=== PATIENT | male | born 2000 | race Hispanic/Latino ===

== ENCOUNTER 2019-02-27 17:27 | Emergency (ER) | payer OTHER ==
[2019-02-27] MEDS ORDERED: DiphenhydrAMINE HCL 50 MG/ML VIAL ONE (17:45)
[2019-02-27] MEDS ORDERED: DEXAMETHASONE SOD PHOSPHATE 10MG/ML 1ML VIAL ONE (17:51)
== END 2019-02-27 18:49 | disposition home or self-care (01) ==
LOC: EDH 17:27
DX: L23.9 Allergic contact dermatitis, unspecified cause (principal)
CPT/HCPCS: 96372 ×2; 99284; J1100; J1200

== ENCOUNTER 2021-01-06 14:51 | Emergency (ER) | payer OTHER, SELFPAY ==
[~2021-01-06] VITALS: Ht 170.2 cm; Wt 65.8 kg
[2021-01-06 14:53] VITALS: BP 119/67
== END 2021-01-06 15:57 | disposition home or self-care (01) ==
LOC: EDH 14:51
DX: Z20.822 Contact with and (suspected) exposure to COVID-19 (principal)
CPT/HCPCS: 99281

== ENCOUNTER 2023-10-16 19:43 | Emergency (ER) | payer OTHER ==
[2023-10-16] MEDS ORDERED: LORAZEPAM 2 MG TABLET PO ONE (20:00)
[2023-10-16] MEDS: LORAZEPAM 1 MG TABLET PO ONE (20:18)
[2023-10-16] MEDS: LORAZEPAM 1 MG TABLET ONE (20:19)
[2023-10-16 20:30] LABS: APPEARANCE,URINE CLEAR (CLEAR); BILIRUBIN,URINE NEGATIVE (NEGATIVE); COLOR,URINE YELLOW (YELLOW); GLUCOSE, URINE (UA) NEGATIVE (NEGATIVE); KETONES,URINE 20 mg/dL (NEGATIVE); LEUKOCYTE ESTERASE ,URINE 250 Leu/uL (NEGATIVE); NITRATE,URINE NEGATIVE (NEGATIVE); OCCULT BLOOD,URINE NEGATIVE (NEGATIVE); PROTEIN,URINE NEGATIVE (NEGATIVE)
[2023-10-16 20:31] LABS: ADD UA MICROSCOPIC YES
[2023-10-16 20:35] LABS: MUCUS,URINE RARE LPF (None Seen); RBC,URINE 0-1 /HPF (0-1)
[2023-10-16 20:37] LABS: AMPHET/METH SCREEN,URINE POSITIVE (NEGATIVE); BARBITURATE SCREEN, URINE NEGATIVE (NEGATIVE); BENZODIAZEPINES SCREEN,URINE NEGATIVE (NEGATIVE); CANNABINOID SCREEN,URINE POSITIVE (NEGATIVE); COCAINE SCREEN,URINE NEGATIVE (NEGATIVE); OPIATE SCREEN,URINE NEGATIVE (NEGATIVE); PHENCYCLIDINE SCREEN,URINE NEGATIVE (NEGATIVE)
[2023-10-16 20:49] LABS: BASOPHILS # (AUTO) 0.04 K/uL (0.00-0.20); BASOPHILS % (AUTO) 0.5 % (0.0-5.0); EOSINOPHILS # (AUTO) 0.28 K/uL (0.00-0.70); EOSINOPHILS % (AUTO) 3.2 % (0.0-8.0); HEMATOCRIT 43.9 % (42-54); IMMATURE GRANULOCYTE ABSOLUTE 0.02 K/uL (0-1); LYMPHOCYTES # (AUTO) 2.7 K/uL (1.0-4.8); LYMPHOCYTES % (AUTO) 31.1 % (21.0-51.0); MEAN CORPUSCULAR HEMOGLOBIN 29.5 pg (27.0-33.0); MEAN CORPUSCULAR HGB CONC 37.1 g/dL (32.0-36.0); MEAN CORPUSCULAR VOLUME 79.4 fL (79-99); MONOCYTES # (AUTO) 0.7 K/uL (0.1-1.0); MONOCYTES % (AUTO) 8.2 % (3.0-13.0); NEUTROPHILS % (AUTO) 56.8 % (40.0-77.0); PLATELET COUNT (AUTO) 261 K/uL (130-400); RED BLOOD CELL COUNT(AUTO) 5.53 MIL/uL (4.50-6.20); RED CELL DISTRIBUTION WIDTH 11.4 % (11.0-15.5); WHITE BLOOD COUNT (AUTO) 8.7 K/uL (4.8-10.8)
[2023-10-16 21:10] LABS: CARBON DIOXIDE 26 mmol/L (21-32); CHLORIDE 101 mmol/L (101-111); CREATININE 1.2 mg/dL (0.5-1.3); GLOMERULAR FILTR. RATE CALC 87 mL/min (>90); GLUCOSE,RANDOM 155 mg/dL (70-105); POTASSIUM 3.4 mmol/L (3.5-5.1); SODIUM SERUM 137 mmol/L (136-145); UREA NITROGEN, BLOOD 11 mg/dL (7-18)
[2023-10-16 21:14] LABS: ALANINE AMINOTRANSFERASE 31 U/L (12-78); ALBUMIN 4.4 g/dL (3.5-5.0); ALCOHOL, BLOOD 4 mg/dL (0-10); ASPARTATE AMINOTRANSFERASE 25 U/L (10-37); BILIRUBIN,TOTAL 1.1 mg/dL (0.2-1.0); CREATINE KINASE, TOTAL 121 U/L (21-232); TOTAL PROTEIN, SERUM 7.3 g/dL (6.0-8.3)
[2023-10-16 21:16] LABS: ACETAMINOPHEN < 1 mcg/mL (10-29); SALICYLATE < 2.8 mg/dL (2.8-20.0)
[2023-10-17 03:34] VITALS: BP 128/82; PULSE 82; RESP 16; O2SAT 99
== END 2023-10-17 03:35 | disposition home or self-care (01) ==
LOC: EDH 19:43
DX: F12.10 Cannabis abuse, uncomplicated (principal); F15.10 Other stimulant abuse, uncomplicated; E87.6 Hypokalemia; F19.10 Other psychoactive substance abuse, uncomplicated
CPT/HCPCS: 99283; 82550; 80053; 80305; 85025; 87088; 36415; 81001; G0481

== ENCOUNTER 2023-11-06 20:32 | Emergency (ER) | payer OTHER ==
[~2023-11-06] VITALS: Ht 167.6 cm; Wt 76.7 kg
[2023-11-06] MEDS: FAMOTIDINE 20MG TAB PO ONE (20:56)
[2023-11-06] MEDS: DICYCLOMINE 20MG (10MG/ML) AMP IM ONE (20:56)
[2023-11-06] MEDS: 0.9%NACL 1000ML 1,000 ML IV ONE (20:56)
[2023-11-06 21:14] LABS: BASOPHILS # (AUTO) 0.03 K/uL (0.00-0.20); BASOPHILS % (AUTO) 0.4 % (0.0-5.0); EOSINOPHILS # (AUTO) 0.32 K/uL (0.00-0.70); EOSINOPHILS % (AUTO) 4.4 % (0.0-8.0); HEMATOCRIT 40.5 % (42-54); IMMATURE GRANULOCYTE ABSOLUTE 0.04 K/uL (0-1); LYMPHOCYTES # (AUTO) 2.6 K/uL (1.0-4.8); LYMPHOCYTES % (AUTO) 35.7 % (21.0-51.0); MEAN CORPUSCULAR HEMOGLOBIN 29.4 pg (27.0-33.0); MEAN CORPUSCULAR HGB CONC 35.8 g/dL (32.0-36.0); MONOCYTES # (AUTO) 0.7 K/uL (0.1-1.0); NEUTROPHILS # (AUTO) 3.6 K/uL (1.8-7.7); PLATELET COUNT (AUTO) 256 K/uL (130-400); RED BLOOD CELL COUNT(AUTO) 4.94 MIL/uL (4.50-6.20); RED CELL DISTRIBUTION WIDTH 11.9 % (11.0-15.5); WHITE BLOOD COUNT (AUTO) 7.3 K/uL (4.8-10.8)
[2023-11-06 21:26] LABS: CREATININE 0.9 mg/dL (0.5-1.3); POTASSIUM 3.7 mmol/L (3.5-5.1)
[2023-11-06] MEDS ORDERED: ONDA-243 PO (22:16)
[2023-11-06 22:30] VITALS: BP 124/66; PULSE 66; RESP 20; O2SAT 97
== END 2023-11-06 22:32 | disposition home or self-care (01) ==
LOC: EDH 20:32
DX: A08.4 Viral intestinal infection, unspecified (principal)
CPT/HCPCS: 99283; 80048; 83690; 85025; 36415; 96372; J7030; J0500

== ENCOUNTER 2024-05-17 08:28 | Emergency (ER) | payer SELFPAY ==
[~2024-05-17] VITALS: Ht 167.6 cm; Wt 73.6 kg
[~2024-05-17 08:28] MED LIST: ONDA-243 PO
--- NOTE | 2024-05-17 08:50 | NUR ---
PATIENT BELONGINGS GIVEN TO SECURITY. PATIENT PLACED IN PAPER SCRUBS. 1:1 SITTER ASSIGNED TO PATIENT.
[2024-05-17 08:55] LABS: BASOPHILS # (AUTO) 0.07 K/uL (0.00-0.20); BASOPHILS % (AUTO) 0.5 % (0.0-5.0); EOSINOPHILS # (AUTO) 0.18 K/uL (0.00-0.70); EOSINOPHILS % (AUTO) 1.3 % (0.0-8.0); HEMATOCRIT 47.8 % (42-54); IMMATURE GRANULOCYTE ABSOLUTE 0.07 K/uL (0-1); LYMPHOCYTES % (AUTO) 22.1 % (21.0-51.0); MEAN CORPUSCULAR HEMOGLOBIN 30.4 pg (27.0-33.0); MONOCYTES # (AUTO) 1.4 K/uL (0.1-1.0); NEUTROPHILS # (AUTO) 8.9 K/uL (1.8-7.7); NEUTROPHILS % (AUTO) 65.6 % (40.0-77.0); PLATELET COUNT (AUTO) 277 K/uL (130-400); RED BLOOD CELL COUNT(AUTO) 5.83 MIL/uL (4.50-6.20); RED CELL DISTRIBUTION WIDTH 11.5 % (11.0-15.5); WHITE BLOOD COUNT (AUTO) 13.6 K/uL (4.8-10.8)
[2024-05-17] MEDS ORDERED: 0.9%NACL 1000ML 1,000 ML IV SCH (09:00)
[2024-05-17 09:05] LABS: CARBON DIOXIDE 30 mmol/L (21-32); CHLORIDE 105 mmol/L (101-111); CREATININE 1.3 mg/dL (0.5-1.3); GLOMERULAR FILTR. RATE CALC 78 mL/min (>90); GLUCOSE,RANDOM 81 mg/dL (70-105); POTASSIUM 3.1 mmol/L (3.5-5.1); SODIUM SERUM 143 mmol/L (136-145); UREA NITROGEN, BLOOD 18 mg/dL (7-18)
[2024-05-17 09:06] LABS: ALCOHOL, BLOOD < 3 mg/dL (0-10); SALICYLATE < 2.8 mg/dL (2.8-20.0)
[2024-05-17 09:07] LABS: ACETAMINOPHEN < 1 mcg/mL (10-29)
[2024-05-17 09:10] LABS: AMPHET/METH SCREEN,URINE POSITIVE (NEGATIVE); BARBITURATE SCREEN, URINE NEGATIVE (NEGATIVE); BENZODIAZEPINES SCREEN,URINE NEGATIVE (NEGATIVE); CANNABINOID SCREEN,URINE POSITIVE (NEGATIVE); COCAINE SCREEN,URINE NEGATIVE (NEGATIVE); OPIATE SCREEN,URINE NEGATIVE (NEGATIVE); PHENCYCLIDINE SCREEN,URINE NEGATIVE (NEGATIVE)
--- NOTE | 2024-05-17 12:16 | NUR ---
SCARLET MUNOZ CALLED AT THIS TIME INITIATE SCREENING
[2024-05-17] MEDS: PoTASSium BIcarbonate/CIT AC 25 MEQ TABLET.EFF PO ONE (12:21)
--- NOTE | 2024-05-17 14:27 | ERN ---
General Chief Complaint: Suicidal Ideation Stated Complaint: SI Time Seen by MD: 08:39 History of Present Illness Initial Comments 23-year-old male came in for suicidal ideation. Patient otherwise has no plan. Patient did take some hydroxyzine pills few days ago. Patient otherwise has no concerns. Allergies: Coded Allergies: No Known Drug Allergies (Unverified Allergy, Unknown, 01/06/21) Home Meds Active Scripts Ondansetron (Ondansetron Odt) 4 Mg Tab.rapdis, 4 MG PO Q6HPRN PRN for NAUSEA/VOMITING, #30 TAB Prov:KEERTHI ZHAO 11/06/23 Past Medical History Past Medical History: Anxiety, Bipolar, Depression Past Surgical History: None Social History Social History: Drugs, ETOH ROS Dictation CONSTITUTIONAL: Negative except for HPI HEAD/FACE: Negative except for HPI EENT: Negative except for HPI RESPIRATORY: Negative except for HPI GASTROINTESTINAL/ABDOMINAL: Negative except for HPI GENITOURINARY: Negative except for HPI MUSCULOSKELETAL: Negative except for HPI INTEGUMENTARY: Negative except for HPI NEUROLOGICAL/PSYCH: Negative except for HPI HEMATOLOGIC/LYMPHATIC: Negative except for HPI All Systems Negative, Except as noted above. 13 point review of systems assessed and all negative except for above. Physical Exam Physical Exam Dictation Vital Signs reviewed General Appearance: Alert, oriented x 3, no acute distress, well developed, nourished. Head and Face: non-traumatic. Eyes: PERRL, pink conjunctivas, eyelid no trauma, anterior chamber with arcus senilis. Ears: Pinnas intact and no signs of trauma or erythema ear canals clear and no discharge TM no erythema Nose: No discharge, no bleeding. Oropharynx: Mouth normal, tongue pink, pharynx clear,no erythema, tonsils no exudates, no abscesses noted, mucous membrane moist Neck: Supple, non-tender, no thyromegaly, no masses, no JVD, no bruits Breast:Deferred Chest:No tenderness, no crepitus, no paradoxical movement, no retractions Lungs:Clear, well-ventilated, symmetric, no rales, no wheezing, no rhonchi, no stridor, good breath sounds bilaterally Heart: Regular rate, regular rhythm, no murmur, no gallops Vascular: no peripheral edema, Abdomen: Soft, positive bowel sounds, nondistended, no guarding, nontender, no rebound, no masses no hepatomegaly, no splenomegaly, no Mccarthy's sign, no hernias. Rectal: Deferred Genital: Deferred Neurological: Normal speech, motor function intact, sensory function intact Musculoskeletal: Neck nontender, full range of motion, back nontender, full range of motion, Extremities: nontender, full range of motion Skin: Color pink, dry, no turgor, no rash, no lacerations, no abrasions, no contusions. Lymphatic: Deferred Results Laboratory and Microbiology Lab and Micro Result Laboratory Tests Test 05/17/24 08:46 White Blood Count 13.6 K/uL (4.8-10.8) H Red Blood Count 5.83 MIL/uL (4.50-6.20) Hemoglobin 17.7 g/dL (14.0-18.0) Hematocrit 47.8 % (42-54) Mean Corpuscular Volume 82.0 fL (79-99) Mean Corpuscular Hemoglobin 30.4 pg (27.0-33.0) Mean Corpuscular Hemoglobin Concent 37.0 g/dL (32.0-36.0) H Red Cell Distribution Width 11.5 % (11.0-15.5) Platelet Count 277 K/uL (130-400) Mean Platelet Volume 10.0 fL (7.5-10.5) Immature Granulocyte % (Auto) 0.5 % (0-1) Neutrophils (%) (Auto) 65.6 % (40.0-77.0) Lymphocytes (%) (Auto) 22.1 % (21.0-51.0) Monocytes (%) (Auto) 10.0 % (3.0-13.0) Eosinophils (%) (Auto) 1.3 % (0.0-8.0) Basophils (%) (Auto) 0.5 % (0.0-5.0) Neutrophils # (Auto) 8.9 K/uL (1.8-7.7) H Lymphocytes # (Auto) 3.0 K/uL (1.0-4.8) Monocytes # (Auto) 1.4 K/uL (0.1-1.0) H Eosinophils # (Auto) 0.18 K/uL (0.00-0.70) Basophils # (Auto) 0.07 K/uL (0.00-0.20) Absolute Immature Granulocyte (auto 0.07 K/uL (0-1) Nucleated Red Blood Cells 0.0 % (0.0-0.19) Red Blood Cell Morphology See comments Sodium Level 143 mmol/L (136-145) Potassium Level 3.1 mmol/L (3.5-5.1) L Chloride Level 105 mmol/L (101-111) Carbon Dioxide Level 30 mmol/L (21-32) Blood Urea Nitrogen 18 mg/dL (7-18) Creatinine 1.3 mg/dL (0.5-1.3) Glomerular Filtration Rate Calc 78 mL/min (>90) Random Glucose 81 mg/dL (70-105) Total Calcium 9.7 mg/dL (8.5-10.1) Salicylates Level < 2.8 mg/dL (2.8-20.0) L Urine Opiates Screen NEGATIVE (NEGATIVE) Acetaminophen Level < 1 mcg/mL (10-29) L Urine Barbiturates Screen NEGATIVE (NEGATIVE) Urine Phencyclidine Screen NEGATIVE (NEGATIVE) Urine Amphetamines Screen POSITIVE (NEGATIVE) H Urine Benzodiazepines Screen NEGATIVE (NEGATIVE) Urine Cocaine Screen NEGATIVE (NEGATIVE) Urine Marijuana (THC) Screen POSITIVE (NEGATIVE) H Serum Alcohol < 3 mg/dL (0-10) MDM MDM: Differential diagnosis: There are no social concerns with this patient. Prescription drug management Prescriptions will include: Medical management and examination interpretation discussions were had by me with other qualified healthcare professionals as indicated for the patient's care. Patient was evaluated by psychiatric screener who states that patient can be discharged home as he does not meet any criteria for inpatient psychiatric care. As per screener patient did ask for detox program for which screener was able to set up outpatient follow up for tomorrow. Patient has all the information he understands and agrees with plan of care. ED Course Orders Procedure Category Date Status Time Cbc With Differential LAB 05/17/24 Complete 08:38 Basic Metabolic Panel LAB 05/17/24 Complete 08:38 Alcohol, Blood LAB 05/17/24 Complete 08:38 Salicylate LAB 05/17/24 Complete 08:38 Drug Screen Urine LAB 05/17/24 Complete 08:38 Acetaminophen LAB 05/17/24 Complete 08:38 Suicide Precautions CPOE 05/17/24 Transmitted 08:38 0.9%Nacl 1000ml (Ns PHA 05/17/24 In Process 1000ml) 09:00 Potassium Bicarb/Cit PHA 05/17/24 Complete Ac 25meq (K-Lyte Ta 12:30 Current Medications Medications (Trade) Dose Ordered Sig/Alan Route PRN Reason Start Time Stop Time Status Last Admin Dose Admin Potassium Bicarbonate (K-Lyte Tablet Eff 25 Meq Tablet.eff) 50 meq ONCE ONCE PO 05/17/24 12:30 05/17/24 12:31 DC 05/17/24 12:21 Sodium Chloride 1,000 ml @ 0 mls/hr Q0M IV 05/17/24 09:00 06/16/24 08:59 Vital Signs Date Time Temp Pulse Resp B/P (MAP) Pulse Ox O2 Delivery O2 Flow Rate FiO2 05/17/24 08:40 98.2 124 22 157/100 98 Room Air* 0 21 05/17/24 08:32 98.2 124 22 157/100 98 Room Air 0 DX & DISP Disposition: Discharge Departure Impression: Primary Impression: Substance abuse Condition: Stable Referrals: SELF,REFERRAL (PCP) CONI MARIE MD May 17, 2024 14:27
--- NOTE | 2024-05-17 14:30 | NUR ---
PATIENT SCREENED BY [facility] AND DOES NOT MEET CRITERIA AT THIS TIME. PATIENT TO BE DISCHARGED.
[2024-05-17 14:34] VITALS: BP 131/98; PULSE 104; RESP 20; TEMP 98.1; O2SAT 97
== END 2024-05-17 14:37 | disposition home or self-care (01) ==
LOC: EDH 08:28
DX: R45.851 Suicidal ideations (principal); F31.9 Bipolar disorder, unspecified; F41.9 Anxiety disorder, unspecified
CPT/HCPCS: 99283; 80048; 80305; 85025; 36415; G0481